=== PATIENT | male | born 1950 | race Two or more races ===

== ENCOUNTER 2018-12-08 10:20 | Emergency (ER) | payer MEDICARE, MEDICAID ==
[~2018-12-08] VITALS: Ht 182.9 cm; Wt 75.0 kg
--- NOTE | 2018-12-08 10:36 | NUR ---
PT SELF CATHS AT HOME FOR URINE. PT HAS OWN SUPPLIES HERE, URINAL PROVIDED FOR COLLECTION. CALL LIGHT WITHIN REACH.
--- NOTE | 2018-12-08 11:00 | NUR ---
URINE COLLECTED/SENT TO LAB.
[2018-12-08 11:25] LABS: MICROSCOPIC AUTO
[2018-12-08 11:30] LABS: CULTURE INDICATED? YES
[2018-12-08 12:24] VITALS: BP 112/61
== END 2018-12-08 13:16 | disposition home or self-care (01) ==
LOC: ED 13:02
DX: N30.00 Acute cystitis without hematuria (principal)
CPT/HCPCS: 81001; 87077; 87086; 87186; 99283